=== PATIENT | female | born 1985 | race Caucasian/White ===

== ENCOUNTER 2016-09-09 22:42 | Emergency (ER) | payer SELFPAY ==
[2016-09-09 22:45] VITALS: BP 117/69; PULSE 116; RESP 16; TEMP 103.1; O2SAT 99
[2016-09-09 23:51] VITALS: BP 114/67; PULSE 98; RESP 16; O2SAT 96
--- NOTE | 2016-09-10 00:25 | PD ---
HPI Chief Complaint: Abdominal Pain Time Seen by Provider: 00:25 Travel History International Travel<30 days: No Contact w/Intl Traveler<30days: No Traveled to known affect area: No History of Present Illness HPI 31-year-old female came to the emergency room with history of fever and lower abdominal pain. Temperature was 103.1 in the triage. Patient is not speaking should but through translation that was obtained that she has also right shoulder pain. A large swelling was noticed on her right shoulder that was soft and upon asking she said she has had this for at least 3 months. She appeared to be in some distress. No history of cough, nausea or diarrhea. PFSH Past Medical History Narrative Medical List of her past medical, surgical, social and family history is reviewed from the nursing note. Medical History: Denies Significant Hx ?: Not LMP: 08/31/2016 Past Surgical History Surgical History: No Previous Surgery Social History Alcohol Use: No Tobacco Use: No Allergies-Medications (Allergen,Severity, Reaction): Coded Allergies: No Known Allergies (Unverified , 09/09/16) Comments No known drug allergies. Reported Meds & Prescriptions Reported Meds & Active Scripts Active Flagyl (Metronidazole) 500 Mg Tab 500 Mg PO TID 7 Days Narrative Medication List of her home medications reviewed from the nursing note. Review of Systems Except as stated in HPI: all other systems reviewed are Neg Physical Exam Narrative GENERAL: Awake, alert, moderate distress SKIN: Focused skin assessment warm/dry. HEAD: Atraumatic. Normocephalic. EYES: Pupils equal and round. No scleral icterus. No injection or drainage. ENT: No nasal bleeding or discharge. Mucous membranes pink and moist. NECK: Trachea midline. No JVD. CARDIOVASCULAR: Regular rate and rhythm. No murmur appreciated. RESPIRATORY: No accessory muscle use. Clear to auscultation. Breath sounds equal bilaterally. GASTROINTESTINAL: Abdomen soft, suprapubic and adnexal tenderness, nondistended. Hepatic and splenic margins not palpable. MUSCULOSKELETAL: No obvious deformities. No clubbing. No cyanosis. No edema. NEUROLOGICAL: Awake and alert. No obvious cranial nerve deficits. Motor grossly within normal limits. Normal speech. PSYCHIATRIC: Appropriate mood and affect; insight and judgment normal. Data Data Last Documented VS Vital Signs Date Time Temp Pulse Resp B/P Pulse Ox O2 Delivery O2 Flow Rate FiO2 09/10/16 02:25 99.4 09/09/16 23:53 16 09/09/16 23:51 98 114/67 96 Room Air Orders Complete Blood Count With Diff (09/10/16 00:33) Comprehensive Metabolic Panel (09/10/16 00:33) Beta Hcg (Quant/Titer) (09/10/16 00:33) Lactic Acid Sepsis Protocol (09/10/16 00:33) Urinalysis - C+S If Indicated (09/10/16 00:33) Blood Culture (09/10/16 00:33) Chest, Single Ap (09/10/16 00:33) Blood Glucose (09/10/16 00:33) Ecg Monitoring (09/10/16 00:33) Iv Access Insert/Monitor (09/10/16 00:33) Oximetry (09/10/16 00:33) Oxygen Administration (09/10/16 00:33) Acetaminophen (Tylenol) (09/10/16 00:45) Ibuprofen (Motrin) (09/10/16 00:45) Ct Abd/Pel W/O Iv Contrast (09/10/16 00:33) Sodium Chlor 0.9% 1000 Ml Inj (Ns 1000 M (09/10/16 00:33) Sodium Chlor 0.9% 1000 Ml Inj (Ns 1000 M (09/10/16 00:33) Sodium Chlor 0.9% 1000 Ml Inj (Ns 1000 M (09/10/16 00:33) Gc And Chlamydia Pcr (09/10/16 00:33) Wet Prep Profile (09/10/16 00:33) Potassium Chloride Eff (K-Lyte Cl Eff) (09/10/16 03:15) Metronidazole (Flagyl) (09/10/16 03:45) Azithromycin Powd Pack (Zithromax Powd P (09/10/16 03:45) Ceftriaxone Inj (Rocephin Inj) (09/10/16 03:45) Lidocaine 1% Inj (50 Ml) (Xylocaine 1% I (09/10/16 03:49) Lidocaine 1% Inj (Xylocaine 1% Inj) (09/10/16 04:00) Labs Laboratory Tests Test 09/10/16 09/10/16 09/10/16 00:40 00:50 03:40 Urine Color YELLOW Urine Turbidity CLEAR Urine pH 6.5 Urine Specific [place] 1.026 Urine Protein TRACE mg/dL Urine Glucose (UA) NEG mg/dL Urine Ketones NEG mg/dL Urine Occult Blood SMALL Urine Nitrite NEG Urine Bilirubin NEG Urine Urobilinogen 2.0 MG/DL Urine Leukocyte Esterase TRACE Urine RBC 7 /hpf Urine WBC 4 /hpf Urine Squamous Epithelial 3 /hpf Cells Urine Mucus FEW /lpf Microscopic Urinalysis Comment CATH-CULT NOT IND White Blood Count 6.5 TH/MM3 Red Blood Count 4.94 MIL/MM3 Hemoglobin 13.1 GM/DL Hematocrit 39.1 % Mean Corpuscular Volume 79.2 FL Mean Corpuscular Hemoglobin 26.4 PG Mean Corpuscular Hemoglobin 33.4 % Concent Red Cell Distribution Width 13.3 % Platelet Count 250 TH/MM3 Mean Platelet Volume 9.4 FL Neutrophils (%) (Auto) 72.2 % Lymphocytes (%) (Auto) 18.3 % Monocytes (%) (Auto) 8.9 % Eosinophils (%) (Auto) 0.0 % Basophils (%) (Auto) 0.6 % Neutrophils # (Auto) 4.7 TH/MM3 Lymphocytes # (Auto) 1.2 TH/MM3 Monocytes # (Auto) 0.6 TH/MM3 Eosinophils # (Auto) 0.0 TH/MM3 Basophils # (Auto) 0.0 TH/MM3 CBC Comment DIFF FINAL Differential Comment Sodium Level 140 MEQ/L Potassium Level 3.2 MEQ/L Chloride Level 106 MEQ/L Carbon Dioxide Level 26.3 MEQ/L Anion Gap 8 MEQ/L Blood Urea Nitrogen 10 MG/DL Creatinine 0.75 MG/DL Estimat Glomerular Filtration 91 ML/MIN Rate Random Glucose 118 MG/DL Lactic Acid Level 1.5 mmol/L Calcium Level 9.0 MG/DL Total Bilirubin 0.4 MG/DL Aspartate Amino Transf 25 U/L (AST/SGOT) Alanine Aminotransferase 41 U/L (ALT/SGPT) Alkaline Phosphatase 80 U/L Total Protein 7.5 GM/DL Albumin 3.7 GM/DL Human Chorionic Gonadotropin, LESS THAN 1 Quant MIU/ML Clue Cells (Wet Prep) PRESENT Vaginal Trichomonas (Wet Prep) NONE SEEN Vaginal Yeast (Wet Prep) NONE SEEN Chlamydia trachomatis DNA NOT DETECTED (PCR) Neisseria gonorrhoeae DNA NOT DETECTED (PCR) [facility] Medical Decision Making Medical Screen Exam Complete: Yes Emergency Medical Condition: Yes Medical Record Reviewed: Yes Differential Diagnosis UTI, acute appendicitis, PID Narrative Course 3:44 AM all the blood test results of back and within normal limit. Lactic acid is within normal limit. Patient had received IV fluid as per the sepsis protocol. Chest x-rays within normal limit as well as UA. I finished doing a pelvic exam and she did have CMT and adnexal tenderness. Swabs have been sent for GC and chlamydia and wet prep. I've chosen to go ahead and treat her. I will discharge her home at this point. Procedures EKG Prior to Arrival: No Diagnosis Primary Impression: PID (acute pelvic inflammatory disease) Additional Impression: Fever Qualified Code: R50.9 - Fever, unspecified fever cause Referrals: Primary Care Physician 2 days Additional Instructions: Please return to the ER if the condition worsen or any other new concerns. Otherwise follow-up with your primary care in couple days. Med/Other Pt SpecificInfo: Prescription(s) given Scripts Metronidazole (Flagyl)500 Mg [id number] Mg PO TID 7 Days Ref 0 Prov:Kelley Dawn MD 09/10/16 Disposition: DISCHARGE HOME Condition: Stable Kelley Dawn MD Sep 10, 2016 00:25
[2016-09-10] MEDS ORDERED: SODIUM CHLOR 0.9% 1000 ML INJ 700 ML IV ONE (00:33)
[2016-09-10] MEDS ORDERED: SODIUM CHLOR 0.9% 1000 ML INJ 1,000 ML IV ONE ×2 (00:33)
[2016-09-10] MEDS ORDERED: ACETAMINOPHEN 325 MG TAB PO ONE (00:45)
[2016-09-10] MEDS ORDERED: IBUPROFEN 600 MG TAB PO ONE (00:45)
--- NOTE | 2016-09-10 00:57 | RADRPT ---
EXAM DATE/TIME: 09/10/2016 00:34 [facility] COMPARISON: No previous studies available for comparison. INDICATIONS : Fever. MEDICAL HISTORY : None. SURGICAL HISTORY : None. ENCOUNTER: Initial ACUITY: 1 day PAIN SCORE: Non-responsive. LOCATION: Bilateral chest FINDINGS: A single view of the chest demonstrates the lungs to be symmetrically aerated without evidence of mas s, infiltrate or effusion. The cardiomediastinal contours are unremarkable. Osseous structures are intact. CONCLUSION: Normal examination. Ac Johnson MD on September 10, 2016 at 0:55 Board Certified Radiologist. This report was verified electronically.
[2016-09-10 01:14] LABS: AUTOMATED NEUTROPHIL # 4.7 TH/MM3 (1.8-7.7); BASOPHIL % 0.6 % (0.0-2.0); HEMATOCRIT 39.1 % (35.0-46.0); HEMO FLAGS DIFF FINAL; LYMPH % 18.3 % (9.0-44.0); LYMPHOCYTE # 1.2 TH/MM3 (1.0-4.8); MEAN CELL VOLUME 79.2 FL (80.0-100.0); MEAN CORPUSCULAR HEMOGLOBIN 26.4 PG (27.0-34.0); MEAN CORPUSCULAR HGB CONC 33.4 % (32.0-36.0); MONO % 8.9 % (0.0-8.0); NEUT % 72.2 % (16.0-70.0); PLATELET COUNT 250 TH/MM3 (150-450); RED BLOOD COUNT 4.94 MIL/MM3 (4.00-5.30); RED CELL DISTRIBUTION WIDTH 13.3 % (11.6-17.2); WHITE BLOOD COUNT 6.5 TH/MM3 (4.0-11.0)
[2016-09-10 01:17] LABS: BLOOD, URINE SMALL (NEG); COMMENT (UR) CATH-CULT NOT IND; CULTURE IF INDICATED CATH CULTURE NOT IND; GLUCOSE,URINE NEG (NEG); KETONE, URINE NEG (NEG); MUCUS URINE FEW /lpf (OCC); NITRITE,URINE NEG (NEG); PH, URINE 6.5 (5.0-8.5); SQUAMOUS EPITHELIAL CELL URINE 3 /hpf (0-5); URINE COLOR YELLOW (YELLW/STRAW)
[2016-09-10 01:52] LABS: ALT (GPT) 41 U/L (10-53); ANION GAP 8 MEQ/L (5-15); AST (GOT) 25 U/L (15-37); BICARBONATE 26.3 MEQ/L (21.0-32.0); BLOOD UREA NITROGEN 10 MG/DL (7-18); CHLORIDE 106 MEQ/L (98-107); GLOMERULAR FILTRATION RATE 91 ML/MIN (>89); POTASSIUM 3.2 MEQ/L (3.5-5.1); SODIUM (NA) 140 MEQ/L (136-145)
[2016-09-10 01:56] LABS: ALKALINE PHOSPHATASE 80 U/L (45-117); BETA HCG QUANT LESS THAN 1 MIU/ML (0-5); TOTAL BILIRUBIN ADULT 0.4 MG/DL (0.2-1.0)
[2016-09-10 02:25] VITALS: TEMP 99.4
--- NOTE | 2016-09-10 03:05 | RADRPT ---
EXAM DATE/TIME: 09/10/2016 02:48 [facility] COMPARISON: No previous studies available for comparison. INDICATIONS : Abdominal pain and fever. ORAL CONTRAST: No oral contrast ingested. RADIATION DOSE: 12.19 CTDIvol (mGy) MEDICAL HISTORY : None SURGICAL HISTORY : None. ENCOUNTER: Initial ACUITY: 1 day PAIN SCALE: 7/10 LOCATION: abdomen TECHNIQUE: Volumetric scanning of the abdomen and pelvis was performed. Using automated exposure control and ad justment of the mA and/or kV according to patient size, radiation dose was kept as low as reasonably achievable to obtain optimal diagnostic quality images. DICOM format image data is available electro nically for review and comparison. FINDINGS: LOWER LUNGS: The visualized lower lungs are clear. LIVER: Homogeneous density without lesion. There is no dilation of the biliary tree. No calcified gallston es. SPLEEN: Normal size without lesion. PANCREAS: Within normal limits. KIDNEYS: Normal in size and shape. There is no mass, stone, or hydronephrosis. ADRENAL GLANDS: Within normal limits. VASCULAR: There is no aortic aneurysm. BOWEL/MESENTERY: The stomach, small bowel, and colon demonstrate no acute abnormality. There is no free intraperitone al air or fluid. ABDOMINAL WALL: Within normal limits. RETROPERITONEUM: There is no lymphadenopathy. BLADDER: No wall thickening or mass. REPRODUCTIVE: Within normal limits. INGUINAL: There is no lymphadenopathy or hernia. MUSCULOSKELETAL: Within normal limits for patient age. CONCLUSION: Normal examination. Ac Johnson MD on September 10, 2016 at 3:03 Board Certified Radiologist. This report was verified electronically.
[2016-09-10] MEDS ORDERED: POTASSIUM CHLORIDE 25 MEQ EFFERVESCENT TAB PO ONE (03:15)
[2016-09-10] MEDS ORDERED: AZITHROMYCIN PWD FOR SUSP 1 GM PACKET PO ONE (03:45)
[2016-09-10] MEDS ORDERED: cefTRIAXone 250 MG VIAL IM ONE (03:45)
[2016-09-10] MEDS ORDERED: metroNIDAZOLE 500 MG TAB PO ONE (03:45)
[2016-09-10] MEDS ORDERED: LIDOCAINE HCL 1% 50 ML VIAL ONE (03:49)
[2016-09-10] MEDS ORDERED: METR-1 PO (03:52)
[2016-09-10] MEDS ORDERED: LIDOCAINE HCL 1% 30 ML VIAL INFIL ONE (04:00)
[2016-09-10 05:54] LABS: CHLAMYDIA PCR NOT DETECTED (NOT DETECT); NEISSERIA PCR NOT DETECTED (NOT DETECT)
== END 2016-09-10 05:15 | disposition home or self-care (01) ==
LOC: NEPC 22:42
DX: N73.9 Female pelvic inflammatory disease, unspecified (principal); R50.9 Fever, unspecified; Z79.899 Other long term (current) drug therapy
CPT/HCPCS: 71010; 74176; 80053; 81001; 83605; 84702; 85025; 87040; 87210; 87491; 87591; 96372; 99285; J0696; J7030